=== PATIENT | male | born 1940 | race Hispanic/Latino ===

== ENCOUNTER 2016-05-15 11:12 | Day surgery (SDC) | payer MEDICARE, OTHER ==
[2016-05-15] MEDS ORDERED: IOPIDINE OD ONE (11:50)
[2016-05-15] MEDS ORDERED: AK-Dilate OD ONE (11:51)
[2016-05-15] MEDS ORDERED: MYDRIACYL 1% OD ONE (11:51)
[2016-05-15 12:02] VITALS: BP 130/60
== END 2016-05-15 12:27 | disposition home or self-care (01) ==
LOC: OR 11:12
PROVIDERS: ATTEND Ophthalmology
DX: E11.36 Type 2 diabetes mellitus with diabetic cataract (principal); H26.491 Other secondary cataract, right eye; I10 Essential (primary) hypertension; E78.00 Pure hypercholesterolemia, unspecified; G47.33 Obstructive sleep apnea (adult) (pediatric); Z98.41 Cataract extraction status, right eye; Z98.42 Cataract extraction status, left eye; Z95.5 Presence of coronary angioplasty implant and graft; K21.9 Gastro-esophageal reflux disease without esophagitis; E11.9 Type 2 diabetes mellitus without complications; M19.90 Unspecified osteoarthritis, unspecified site; Z72.89 Other problems related to lifestyle; Z85.828 Personal history of other malignant neoplasm of skin; Z87.891 Personal history of nicotine dependence
CPT/HCPCS: 82962